=== PATIENT | female | born 1995 | race Caucasian/White ===

== ENCOUNTER 2017-01-10 10:03 | Emergency (ER) | payer OTHER ==
[~2017-01-10] VITALS: Ht 152.4 cm; Wt 43.2 kg
[2017-01-10 10:07] VITALS: TEMP 37.3; Ht 152.4 cm; Wt 43.2 kg
[2017-01-10] MEDS ORDERED: ALBUT/IPRATROP 3MG/0.5MG NEB 3 ML VIAL INH STA (10:25)
[2017-01-10] MEDS ORDERED: SODIUM CHLORIDE 0.9% 1000ML 1,000 ML IV STA (10:25)
[2017-01-10] MEDS ORDERED: ONDANSETRON INJ 2 MG/ML 2 ML VIAL IV STA (10:25)
[2017-01-10 11:04] LABS: BASO % 0.3 %; BASO ABS # 0.03 K/uL (0-0.2); COMPLETE YES; EOS % 1.6 %; HEMATOCRIT 43.5 % (37-47); IG% 0.2 %; LYMPH % 13.8 %; LYMPH ABS # 1.23 K/uL (1.2-3.4); MEAN CELL VOLUME 95.4 fL (80-100); MEAN CORPUSCULAR HEMOGLOBIN 33.3 pg (25-34); MEAN CORPUSCULAR HGB CONC 34.9 g/dl (32-36); MEAN PLATELET VOLUME 10.5 fL (7.4-10.4); MONO % 8.5 %; NEUT % 75.6 %; PLATELET COUNT 206 K/uL (130-400); RED BLOOD COUNT 4.56 M/uL (4.2-5.4); WHITE BLOOD COUNT 8.94 K/uL (4.8-10.8)
[2017-01-10 11:12] LABS: PREG INTERNAL NEGATIVE QC NEG CLEAR BACKGROUND; PREG INTERNAL POSITIVE QC POS CONTROL LINE
[2017-01-10 11:13] LABS: ALT/SGPT 23 U/L (12-78); AST/SGOT 17 U/L (15-37); BLOOD UREA NITROGEN 14 mg/dl (7-18); BUN/CREATININE RATIO 23.1 (10-20); CALCIUM 9.2 mg/dl (8.5-10.1); CARBON DIOXIDE 28 mmol/L (21-32); CHLORIDE 106 mmol/L (98-107); CREATININE 0.61 mg/dl (0.60-1.20); GLUCOSE 91 mg/dl (70-99); POTASSIUM 3.8 mmol/L (3.5-5.1); SODIUM 141 mmol/L (136-145)
[2017-01-10] MEDS ORDERED: OPTIRAY 320 IV PRN (11:15)
[2017-01-10 11:16] LABS: ALKALINE PHOSPHATASE 71 U/L (45-117)
--- NOTE | 2017-01-10 11:33 | DIAGNOSTIC IMAGING REPORT ---
CHEST 2 VIEWS ROUTINE CLINICAL HISTORY: Atypical chest pain COMPARISON STUDY: No previous studies for comparison. FINDINGS: The heart is enlarged. There are postsurgical changes of a midline sternotomy. There is a radiopaque disc like structure projected over the heart, possibly representing an atrial occluder. There is no failure. There is no focal pulmonary consolidation. There are no pleural effusions. There are multiple right upper quadrant calcifications. These could represent gallstones, or renal calculi.[ IMPRESSION: 1. Cardiomegaly. Postsurgical change. No acute findings. 2. Right upper quadrant abdominal calcifications Electronically signed by: Yoan Bergman M.D. 01/10/2017 11:32 AM Dictated Date/Time: 01/10/2017 11:30 AM
--- NOTE | 2017-01-10 12:00 | DIAGNOSTIC IMAGING REPORT ---
CT ANGIOGRAM OF THE CHEST CLINICAL HISTORY: Atypical chest pain, shortness of breath, palpitations, elevated d-dimer. COMPARISON STUDY: Chest x-ray dated 01/10/2017 TECHNIQUE: Following the IV administration of 72 mL of Optiray-320, CT angiogram of the thorax was performed from the thoracic inlet to the lung bases utilizing the pulmonary embolus protocol. Images are reviewed in the axial, sagittal, and coronal planes. IV contrast was administered without complication. MIP imaging was performed. CT DOSE: 211.55 mGy.cm FINDINGS: No pathologically enlarged axillary mediastinal or hilar lymph nodes were visualized. There was no evidence of thoracic aortic dilatation. There were no pulmonary artery filling defects to indicate acute pulmonary embolism. A violation lung bases is mildly limited due to respiratory motion artifact. No pleural effusions are visualized. There was no evidence of focal pulmonary consolidation. There are postsurgical changes of a midline sternotomy. There is a pectus deformity. The heart is enlarged. There is an atrial occlusion device present. Inflammatory changes are present within the paranasal sinuses. IMPRESSION: 1. No CT evidence of acute pulmonary embolism 2. No evidence of acute parenchymal consolidation Electronically signed by: Yoan Bergman M.D. 01/10/2017 11:58 AM Dictated Date/Time: 01/10/2017 11:54 AM
[2017-01-10] MEDS ORDERED: DOXY100C2 PO (13:52)
[2017-01-10] MEDS ORDERED: VNTHFA/IN INH (13:52)
[2017-01-10 14:06] VITALS: BP 133/81; PULSE 97; O2SAT 98
--- NOTE | 2017-01-10 16:13 | EMERGENCY ROOM VISIT NOTE ---
ED Visit Note First contact with patient: 10:11 Chief Complaint: Sinus pressure, chest pain, palpitations and wisdom teeth pain. History of Present Illness: Ms. Oliver is a 21-year-old white female who ambulates into the ED with multiple complaints. Historically patient has a history of congenital heart anomalies requiring surgery as an , asthma and pneumonia. Patient reports over the last 2 weeks she has been having upper respiratory tract symptoms including sinus congestion, nasal drainage, nonproductive cough, dyspnea on exertion and over the last 2 days fevers. She reports yesterday she started developing a pressure sensation over the anterior chest. Her discomfort started approximately 18 hours ago and has been constant. She rates her discomfort 5/10. Her pain is nonradiating. Her pain worsens with palpation of the anterior chest wall. She has not identified any alleviating factors related to her discomfort. She has not taken any medications for her discomfort prior to arrival at the hospital. Associated with her discomfort she reports she has intermittent palpitations; she reports this is normal and does not appear worse, and she reports she is having exertional dyspnea specifically when walking that resolves at rest and intermittently she has been hearing herself wheeze but not currently. She denies skin eruptions, skin color changes, headache, dizziness, hearing changes, sore throat, difficulty swallowing, recent surgery/inactivity/extended travel, estrogen/tobacco use, claudication, cramping, previous clots, abdominal pain, nausea/vomiting, back/flank pain. Additionally she reports she is having mandibular dental pain over her wisdom teeth. This is been ongoing for a while. She feels like it is increasing. She describes her discomfort as a deep achy sensation. Her discomfort worsens when chewing. She has not identified any alleviating factors related to her discomfort and has not taken any medications for this discomfort. Review of Systems: As noted above in history of present illness. All body systems were reviewed and found to be negative as noted above. Past Medical History: As previously noted, status post left lower leg amputation. Current Medications: Albuterol. Allergies to Medications: Penicillins, cephalosporins. Social History: Patient is currently employed; she feels safe in her home environment; she denies tobacco and alcohol use. Physical Examination: Vital Signs: Date Time Temp Pulse Resp B/P Pulse Ox O2 Delivery O2 Flow Rate FiO2 01/10/17 14:06 97 133/81 98 01/10/17 12:58 78 16 117/71 100 Room Air 01/10/17 11:00 84 120/69 100 01/10/17 10:51 98 Room Air 01/10/17 10:07 37.3 100 18 132/81 100 Room Air GENERAL: 21-year-old female in mild distress due to symptoms, nontoxic-appearing , afebrile and hemodynamically stable. NEUROLOGICAL: Awake, alert and oriented to person, place and time. Answering questions appropriately and following commands. Normal gait. Good hand eye coordination. No focal motor sensory deficits. SKIN: Warm, dry and pink. No soft tissue eruptions or trauma noted. HEENT: Atraumatic and normocephalic. Mild tenderness over the maxillary sinuses without erythema. No tenderness or erythema over the frontal sinuses. No transillumination abnormalities of the sinuses. External ears are nontender. Auditory canals are pink and patent. Tympanic membranes are normal appearing without signs of infection and a normal light reflex. PERRLA. Sclera white and conjunctiva pink without drainage. No drainage from naris with mild audible congestion. Oral cavity moist and pink. No signs of gingiva erythema or edema. No local abscess. Pointblank teeth do not appear impacted. And there is no signs of dental decay. Airway patent. Pharynx is nonerythematous or edematous. Speech normal. No lymphadenopathy. Trachea midline. No jugular venous distention. No carotid bruits. BACK: No tenderness over the bony spine. No CVA tenderness. THORAX: Lungs sounds are clear to auscultation but decreased bilaterally in the bases. Equal bilaterally with symmetrical chest wall. No wheezing, rales or rhonchi. No increased respiratory effort or rate. Mild tenderness over the anterior chest wall without bony deformity, bony crepitus or subcutaneous air. HEART: Tachycardic rate and rhythm. No gallops, rubs or murmurs are appreciated. PMI is not displaced. No lifts, heaves or thrills. ABDOMEN: Flat, soft and nontender. Positive bowel sounds in all quadrants. No guarding, rigidity or organomegaly. EXTREMITIES: Moves all extremities well on command and with purpose. All distal neurovascular statuses are intact and equal bilaterally. Left lower leg is prosthetic. No calf tenderness or cords in the right lower extremity. ED Course: Patient is assessed as noted above. Laboratory Testing: Test 4/20/17 10:31 01/10/17 10:36 Range/Units White Blood Count 8.94 4.8-10.8 K/uL Red Blood Count 4.56 4.2-5.4 M/uL Hemoglobin 15.2 12.0-16.0 g/dL Hematocrit 43.5 37-47 % Mean Corpuscular Volume 95.4 80-100 fL Mean Corpuscular Hemoglobin 33.3 25-34 pg Mean Corpuscular Hemoglobin Concent 34.9 32-36 g/dl Platelet Count 206 130-400 K/uL Mean Platelet Volume 10.5 7.4-10.4 fL Neutrophils (%) (Auto) 75.6 % Lymphocytes (%) (Auto) 13.8 % Monocytes (%) (Auto) 8.5 % Eosinophils (%) (Auto) 1.6 % Basophils (%) (Auto) 0.3 % Neutrophils # (Auto) 6.76 1.4-6.5 K/uL Lymphocytes # (Auto) 1.23 1.2-3.4 K/uL Monocytes # (Auto) 0.76 0.11-0.59 K/uL Eosinophils # (Auto) 0.14 0-0.5 K/uL Basophils # (Auto) 0.03 0-0.2 K/uL RDW Standard Deviation 44.1 36.4-46.3 fL RDW Coefficient of Variation 12.6 11.5-14.5 % Immature Granulocyte % (Auto) 0.2 % Immature Granulocyte # (Auto) 0.02 0.00-0.02 K/uL Sodium Level 141 136-145 mmol/L Potassium Level 3.8 3.5-5.1 mmol/L Chloride Level 106 98-107 mmol/L Carbon Dioxide Level 28 21-32 mmol/L Anion Gap 7.0 3-11 mmol/L Blood Urea Nitrogen 14 7-18 mg/dl Creatinine 0.61 0.60-1.20 mg/dl Est Creatinine Clear Calc Drug Dose 100.3 ml/min Estimated GFR () > 150.0 Estimated GFR (Non- 130.5 BUN/Creatinine Ratio 23.1 10-20 Random Glucose 91 70-99 mg/dl Calcium Level 9.2 8.5-10.1 mg/dl Total Bilirubin 1.7 0.2-1 mg/dl Direct Bilirubin 0.3 0-0.2 mg/dl Aspartate Amino Transf (AST/SGOT) 17 15-37 U/L Alanine Aminotransferase (ALT/SGPT) 23 12-78 U/L Alkaline Phosphatase 71 45-117 U/L Total Protein 8.0 6.4-8.2 gm/dl Albumin 3.9 3.4-5.0 gm/dl Lipase 136 73-393 U/L Human Chorionic Gonadotropin, Qual NEG NEG Bedside D-Dimer > 450 0-450 ng/mlFEU Bedside Troponin I 0.010 0-0.045 ng/ml EKG: Was read by myself and reviewed with Dr. Blackwood; shows normal sinus rhythm with a ventricular rate of 90 bpm. She does have septal changes in her T wave pattern of questionable etiology; they do not appear acute but could be cardiac surgeries. Chest x-rays: Were read by myself and the cook tortilla showing no acute infiltrates, effusions or pneumothorax. Heart silhouette is enlarged and there is postsurgical changes noted. Radiologist also notes right upper quadrant calcifications. Chest CTA: Was reviewed by myself and read by the radiologist showing no filling deficits consistent with acute pulmonary embolism and no evidence of acute parenchymal consolidation. Radiologist did note noted postsurgical changes of midsternal sternotomy. Additionally it is noted that the patient has inflammatory changes within the parents the paranasal sinuses Patient was hydrated with normal saline and was given 4 mg of Zofran IV for nausea and an albuterol/Atrovent nebulizer breathing treatment. Reevaluation of her lungs after her breathing treatment showed improved air movement in all crespo and she continued to have no acute respiratory distress. Patient's case was reviewed with Dr. Blackwood; we agreed on diagnostic approach , treatment, disposition and plan. Patient was educated about tonight's findings and instructed on her treatment plan; she verbalized understanding and agreement with this plan. Clinical Impression: Sinusitis. Pointblank teeth pain. Decision-Making: Initially my differential diagnosis I considered sinusitis, bronchitis, pneumonia, acute coronary syndrome, thoracic aneurysm, pneumothorax and other causes. Disposition: Patient discharged home in stable condition; prior to departure she was reassessed and subjectively reported she was feeling better; she reports she felt like she was breathing easier and reported a mild decrease in her dental pain and sinus discomfort. Plan: Patient was prescribed doxycycline 100 mg 2 times a day for 10 days. Additionally patient reports she has run out of her albuterol inhaler so she was prescribed an additional one with a spacer and instructed on achieves. Patient was encouraged to alternate ibuprofen and acetaminophen as needed for pain and/or fevers. Patient was encouraged to consider an [id number] decongestant her cough suppressant. Patient was encouraged to follow-up with her primary care providers for recheck in 3-5 days. Patient was encouraged return the ED for worsening/uncontrolled pain, uncontrolled fevers, uncontrolled wheezing/shortness of breath or any new/ concerning symptoms.
== END 2017-01-10 14:07 | disposition home or self-care (01) ==
LOC: C.EDB 10:06
DX: J32.9 Chronic sinusitis, unspecified (principal); K08.89 Other specified disorders of teeth and supporting structures; Z89.612 Acquired absence of left leg above knee; Z88.1 Allergy status to other antibiotic agents; Z88.8 Allergy status to other drugs, medicaments and biological substances

== ENCOUNTER 2017-01-14 03:45 | Emergency (ER) | payer OTHER ==
[~2017-01-14] VITALS: Ht 152.4 cm; Wt 41.8 kg
[~2017-01-14 03:45] MED LIST: DOXY100C2 PO; VNTHFA/IN INH
[2017-01-14 04:02] VITALS: TEMP 36.8; Ht 152.4 cm; Wt 41.8 kg
[2017-01-14] MEDS ORDERED: ONDANSETRON INJ 2 MG/ML 2 ML VIAL IV STA (04:02)
[2017-01-14] MEDS ORDERED: SODIUM CHLORIDE 0.9% 1000ML 1,000 ML IV STA (04:02)
--- NOTE | 2017-01-14 04:06 | EMERGENCY ROOM VISIT NOTE ---
History Report prepared by Yovana: Gurmeet Weinberg Under the Supervision of: Dr. Rebecca Locke D.O. First contact with patient: 03:46 Stated Complaint: nausea/vomitting History of Present Illness The patient is a 21 year old female who presents to the Emergency Room with complaints of persistent nausea that started yesterday. The patient also complains of vomiting and abdominal pain. She notes that the vomiting woke her up from sleep and started about an hour ago. The patient was recently in the ED a few days ago for sinusitis with asthma. She was given Doxycycline and Albuterol and has been taking these for a few days. She notes that she was feeling nauseated, but was able to deal with it until tonight when she started vomiting. The patient notes that she had an eating disorder that led to chronic yeast infections a few months ago. However, she has been doing better and eating more normally for the past few weeks. She was able to eat and drink normally yesterday having spaghetti and toast for lunch and dinner. She denies diarrhea or urinary symptoms. Her last normal menstrual period started a week ago. Source of History: patient Onset: yesterday Position: abdomen Timing: other (persistent) Associated Symptoms: + abdominal pain, + vomiting, No diarrhea, No urinary symptoms Review of Systems See HPI for pertinent positives & negatives. A total of 10 systems reviewed and were otherwise negative. Past Medical & Surgical Medical Problems: (1) Bronchitis (2) Gallbladder problem (3) Heart disease (4) Skin problem Surgical Problems: (1) Amputated left leg Family History FH: cancer FH: diabetes mellitus FH: gallbladder disease FH: heart disease FH: hypertension FH: lung disease Social History Smoking Status: Never Smoker Alcohol Use: none Marital Status: single Housing Status: lives alone Occupation Status: employed Current/Historical Medications Scheduled Albuterol Hfa (Ventolin Hfa), 2 PUFFS INH QID Doxycycline Hyclate (Vibramycin), 100 MG PO BID Allergies Coded Allergies: Cephalexin (Verified Allergy, Severe, HIVES, 01/14/17) Penicillins (Verified Allergy, Severe, HIVES, 01/14/17) Amoxicillin (Verified Allergy, Unknown, hives, 01/14/17) Physical Exam Vital Signs Date Time Temp Pulse Resp B/P Pulse Ox O2 Delivery O2 Flow Rate FiO2 01/14/17 04:46 94 18 93/72 99 Room Air 01/14/17 04:02 36.8 86 18 139/85 99 Room Air Physical Exam HEENT: Head - normocephalic and atraumatic Pupils are equal, round, and reactive to light. Extraocular eye muscles are intact, and sclera are anicteric. Nose - moist nasal mucosa without discharge. Mouth - moist buccal mucosa. Oropharynx is nonerythematous and there is no tonsillar exudate or edema noted. Neck: Supple; no JVD, nuchal rigidity, cervical lymphadenopathy. Heart: Regular rate and rhythm. There is a normal S1 and S2 with no murmurs, clicks, or gallops appreciated. Lungs: Clear to auscultation bilaterally with no wheezes, rales, or rhonchi. Abdomen: Soft, completely nontender, nondistended, with good bowel sounds. There are no palpable pulsatile masses or hepatosplenomegaly. There is no guarding, rigidity, or rebound noted. Extremities: No evidence of cyanosis, clubbing, or edema. Left leg BKA. Skin: color is pantoja. warm and dry with good turgor and no rashes. Medical Decision & Procedures Laboratory Results 01/14/17 04:00 Red Blood Count 4.66, Mean Corpuscular Volume 96.1, Mean Corpuscular Hemoglobin 33.0, Mean Corpuscular Hemoglobin Concent 34.4, Mean Platelet Volume 10.2, Neutrophils (%) (Auto) 84.1, Lymphocytes (%) (Auto) 7.3, Monocytes (%) (Auto) 6.9, Eosinophils (%) (Auto) 1.3, Basophils (%) (Auto) 0.1, Neutrophils # (Auto) 12.17, Lymphocytes # (Auto) 1.06, Monocytes # (Auto) 1.00, Eosinophils # (Auto) 0.19, Basophils # (Auto) 0.02 01/14/17 04:00 Test 01/14/17 04:00 White Blood Count 14.48 K/uL (4.8-10.8) Red Blood Count 4.66 M/uL (4.2-5.4) Hemoglobin 15.4 g/dL (12.0-16.0) Hematocrit 44.8 % (37-47) Mean Corpuscular Volume 96.1 fL (80-100) Mean Corpuscular Hemoglobin 33.0 pg (25-34) Mean Corpuscular Hemoglobin Concent 34.4 g/dl (32-36) Platelet Count 263 K/uL (130-400) Mean Platelet Volume 10.2 fL (7.4-10.4) Neutrophils (%) (Auto) 84.1 % Lymphocytes (%) (Auto) 7.3 % Monocytes (%) (Auto) 6.9 % Eosinophils (%) (Auto) 1.3 % Basophils (%) (Auto) 0.1 % Neutrophils # (Auto) 12.17 K/uL (1.4-6.5) Lymphocytes # (Auto) 1.06 K/uL (1.2-3.4) Monocytes # (Auto) 1.00 K/uL (0.11-0.59) Eosinophils # (Auto) 0.19 K/uL (0-0.5) Basophils # (Auto) 0.02 K/uL (0-0.2) RDW Standard Deviation 44.1 fL (36.4-46.3) RDW Coefficient of Variation 12.5 % (11.5-14.5) Immature Granulocyte % (Auto) 0.3 % Immature Granulocyte # (Auto) 0.04 K/uL (0.00-0.02) Anion Gap 7.0 mmol/L (3-11) Est Creatinine Clear Calc Drug Dose 79.0 ml/min Estimated GFR () 133.0 Estimated GFR (Non- 114.7 BUN/Creatinine Ratio 25.2 (10-20) Calcium Level 8.8 mg/dl (8.5-10.1) Total Bilirubin 1.5 mg/dl (0.2-1) Aspartate Amino Transf (AST/SGOT) 19 U/L (15-37) Alanine Aminotransferase (ALT/SGPT) 29 U/L (12-78) Alkaline Phosphatase 74 U/L (45-117) Total Protein 8.2 gm/dl (6.4-8.2) Albumin 4.2 gm/dl (3.4-5.0) Globulin 4.0 gm/dl (2.5-4.0) Albumin/Globulin Ratio 1.1 (0.9-2) Lipase 124 U/L (73-393) Laboratory results per my review. Medications Administered Medications (Trade) Dose Ordered Sig/Tania Route Start Time Stop Time Status Last Admin Dose Admin Ondansetron HCl 4 mg 4 mg NOW STAT IV 01/14/17 04:02 01/14/17 04:05 DC 01/14/17 04:08 4 MG Sodium Chloride 1,000 ml @ 999 mls/hr Q1H1M STAT IV 01/14/17 04:02 01/14/17 05:02 DC 01/14/17 04:08 999 MLS/HR Sodium Chloride (Nss 500ml) 500 ml @ 999 mls/hr Q31M STAT IV 01/14/17 04:40 01/14/17 05:10 DC 01/14/17 04:46 999 MLS/HR Lorazepam (Ativan Inj) 0.5 mg NOW STAT IV 01/14/17 05:10 01/14/17 05:11 DC 01/14/17 05:14 0.5 MG Procedure NSS IV Zofran Inj IV NSS IV Ativan Inj IV ED Course 0352: Past medical records reviewed. The patient was evaluated in room B2. A complete history and physical exam was performed. An IV lock was initiated and labs were drawn as above. 0402: Ordered NSS 1000 ml @ 999 mls/hr IV, Zofran Inj 4 mg IV/ 0434: At this time, I reevaluated the patient and she was feeling worse than before. She states that she is having a panic attack, but she does not want any medication to treat it. She notes her nausea and vomiting are improving after the medications. She thinks coming to the ED is what started her panic attack. 0440: Ordered NSS 500 ml @ 999 mls/hr IV. 0506: At his time, the patient asked for medication for anxiety. 0510: Ordered Ativan Inj 0.5 mg IV. 0524: At this time, I reevaluated the patient and she was asleep. 0550: At this time, the patient was easily woken up. She was going to try Gatorade and eat crackers. 0610: Upon reevaluation, the patient was resting comfortably and able to keep the fluids and food down. I discussed findings and results with her. She verbalized agreement of the treatment plan. The patient was discharged home. Medical Decision The patient is a 21 year old female who presents to the ED with nausea. Differential diagnosis includes gastritis, viral illness, dehydration, food borne illness, or bowel obstruction. Labs reviewed by me: WBCs 14.4, stable H&H, 84% neutrophils, potassium low at 3.2, BUN 19, creatinine 0.75, glucose 124, lipase normal, LFTs normal except for total bilirubin of 1.5. This is a 21-year-old female patient with a history of anxiety who had a sudden onset of nausea and vomiting as morning. She denies any recent sick contacts, although she works at a daycare. She ate food that was repaired at home for lunch and dinner. This is unlikely the cause of her vomiting. The patient has no significant signs of infection. She had significant relief after receiving IV fluids and antiemetics. She is resting comfortably at this time was able to drink Gatorade and crackers. I suggested that the patient follow up with her PCP if the anxiety continues. Otherwise, she should take a bland diet, plenty of clear liquids, and foods high in potassium. If the vomiting persists or symptoms worsen, she should return to the ER. Impression Primary Impression: Vomiting Additional Impressions: Anxiety Hypokalemia Scribe Attestation The scribe's documentation has been prepared under my direction and personally reviewed by me in its entirety. I confirm that the note above accurately reflects all work, treatment, procedures, and medical decision making performed by me. Departure Information Dispostion Home / Self-Care Referrals Joe Major M.D. (PCP) Forms HOME CARE DOCUMENTATION FORM, IMPORTANT VISIT INFORMATION Patient Instructions Anxiety Body Response, Anxiety Disorder, My [facility], Vomiting Ch Additional Instructions Rest. Take a bland diet and plenty of clear liquids Take foods high in potassium. Follow up with PCP if anxiety continues to be a problem. Problem Qualifiers
[2017-01-14 04:14] LABS: BASO % 0.1 %; BASO ABS # 0.02 K/uL (0-0.2); COMPLETE YES; EOS % 1.3 %; HEMATOCRIT 44.8 % (37-47); IG% 0.3 %; LYMPH % 7.3 %; LYMPH ABS # 1.06 K/uL (1.2-3.4); MEAN CELL VOLUME 96.1 fL (80-100); MEAN CORPUSCULAR HGB CONC 34.4 g/dl (32-36); MEAN PLATELET VOLUME 10.2 fL (7.4-10.4); MONO % 6.9 %; NEUT % 84.1 %; PLATELET COUNT 263 K/uL (130-400); RED BLOOD COUNT 4.66 M/uL (4.2-5.4); WHITE BLOOD COUNT 14.48 K/uL (4.8-10.8)
[2017-01-14 04:31] LABS: BUN/CREATININE RATIO 25.2 (10-20); CALCIUM 8.8 mg/dl (8.5-10.1); CREATININE 0.75 mg/dl (0.60-1.20); POTASSIUM 3.2 mmol/L (3.5-5.1)
[2017-01-14 04:34] LABS: ALB/GLOB RATIO 1.1 (0.9-2)
[2017-01-14] MEDS ORDERED: SODIUM CHLORIDE 0.9% 500ML 500 ML IV STA (04:40)
[2017-01-14] MEDS ORDERED: LORAZEPAM 2 MG/ML 1 ML VIAL IV STA (05:10)
[2017-01-14 06:30] VITALS: BP 109/55; PULSE 87; O2SAT 98
== END 2017-01-14 06:30 | disposition home or self-care (01) ==
LOC: EDBD 03:45 → C.EDB 03:46
DX: R11.2 Nausea with vomiting, unspecified (principal); F41.9 Anxiety disorder, unspecified; E87.6 Hypokalemia; R10.9 Unspecified abdominal pain; Z86.79 Personal history of other diseases of the circulatory system; Z87.19 Personal history of other diseases of the digestive system; Z82.49 Family history of ischemic heart disease and other diseases of the circulatory system; Z83.3 Family history of diabetes mellitus; Z83.6 Family history of other diseases of the respiratory system; Z83.79 Family history of other diseases of the digestive system

== ENCOUNTER 2017-01-20 04:12 | Emergency (ER) | payer OTHER ==
[~2017-01-20] VITALS: Ht 149.9 cm; Wt 44.0 kg
[~2017-01-20 04:12] MED LIST changes: -VNTHFA/IN INH
[2017-01-20 04:25] VITALS: TEMP 37.8; O2SAT 97; Ht 149.9 cm; Wt 44.0 kg
[2017-01-20 04:49] LABS: BASO % 0.5 %; BASO ABS # 0.03 K/uL (0-0.2); COMPLETE YES; EOS % 3.8 %; HEMATOCRIT 42.5 % (37-47); IG% 0.5 %; LYMPH % 30.4 %; LYMPH ABS # 1.98 K/uL (1.2-3.4); MEAN CELL VOLUME 93.8 fL (80-100); MEAN CORPUSCULAR HEMOGLOBIN 32.2 pg (25-34); MEAN CORPUSCULAR HGB CONC 34.4 g/dl (32-36); MONO % 7.2 %; NEUT % 57.6 %; PLATELET COUNT 239 K/uL (130-400); RED BLOOD COUNT 4.53 M/uL (4.2-5.4); WHITE BLOOD COUNT 6.51 K/uL (4.8-10.8)
[2017-01-20] MEDS ORDERED: CLIN300C2 PO (04:53)
[2017-01-20 05:12] LABS: ALT/SGPT 36 U/L (12-78); AST/SGOT 32 U/L (15-37); BLOOD UREA NITROGEN 14 mg/dl (7-18); BUN/CREATININE RATIO 22.4 (10-20); CALCIUM 8.8 mg/dl (8.5-10.1); CARBON DIOXIDE 29 mmol/L (21-32); CHLORIDE 103 mmol/L (98-107); CREATININE 0.62 mg/dl (0.60-1.20); GLUCOSE 85 mg/dl (70-99); POTASSIUM 3.4 mmol/L (3.5-5.1); SODIUM 140 mmol/L (136-145)
[2017-01-20 05:14] LABS: ALB/GLOB RATIO 1.1 (0.9-2); ALKALINE PHOSPHATASE 61 U/L (45-117)
[2017-01-20] MEDS ORDERED: OPTIRAY 320 IV PRN (05:15)
--- NOTE | 2017-01-20 07:18 | EMERGENCY ROOM VISIT NOTE ---
History First contact with patient: 04:15 Chief Complaint: CHEST PAIN Stated Complaint: CHEST PAIN Nursing Triage Summary: Patient reports "aching chest pain" tonight that was making it difficult to sleep. Reports that she has noticed aching to chest intermittently for past 2 days. Also was seen at [facility] on 01/19 for tooth infection and was put on abx. Patient concerned about heart infection due to hx of congenital heart issues. Patient sees developmental behavioral physician routinely & has not had any issues since 2005 when she had a cardiac cath with VSD done at that time. History of Present Illness The patient is a 21 year old female who presents to the Emergency Room with complaints of dull aching chest pain over the past several hours. The patient states that she has had intermittent chest discomfort for the past 2 days. The patient was seen in [facility] several hours ago and diagnosed with a tooth infection. She was placed on clindamycin for a dental infection. The patient became concerned as she has a past history of pulmonary atresia, and felt that she may have a heart problem. The patient has not had fever or chills. If she does not have shortness of breath or dyspnea on exertion. She is without other significant symptoms. She rates her discomfort a 5/10. Review of Systems More than 10 systems were reviewed and otherwise negative with the exception of history of present illness. Past Medical/Surgical History Medical Problems: (1) Bronchitis (2) Gallbladder problem (3) Heart disease (4) Skin problem Surgical Problems: (1) Amputated left leg Family History FH: cancer FH: diabetes mellitus FH: gallbladder disease FH: heart disease FH: hypertension FH: lung disease Social History Smoking Status: Never Smoker Alcohol Use: none Marital Status: single Housing Status: lives alone Occupation Status: employed Current/Historical Medications Scheduled Clindamycin Hcl (Cleocin), 300 MG PO QID Allergies Coded Allergies: Cephalexin (Verified Allergy, Severe, HIVES, 01/14/17) Penicillins (Verified Allergy, Severe, HIVES, 01/14/17) Amoxicillin (Verified Allergy, Unknown, hives, 01/14/17) Physical Exam Vital Signs Date Time Temp Pulse Resp B/P Pulse Ox O2 Delivery O2 Flow Rate FiO2 01/20/17 06:49 72 20 111/61 99 Room Air 01/20/17 06:41 69 16 95/56 97 Room Air 01/20/17 05:12 68 13 98 01/20/17 04:57 71 20 96 01/20/17 04:42 71 20 97 01/20/17 04:40 77 01/20/17 04:25 97 Room Air 01/20/17 04:25 37.8 73 20 122/75 97 Room Air 01/20/17 04:25 97 Room Air 01/20/17 04:23 122/75 Physical Exam VITALS: Vitals are noted on the nurse's note and reviewed by myself. Vital signs stable. GENERAL: Well-developed, well-nourished, anxious white female, who is cooperative with the examination. HEAD: Normocephalic atraumatic. EARS: External ear normal. External auditory canals clear, tympanic membranes pearly pantoja without erythema or effusion bilaterally. EYES: Pupils equal round and reactive to light and accommodation. Conjunctivae without injection, sclerae without icterus. Extraocular movements intact. NOSE: Patent, turbinates without inflammation or discharge. MOUTH: Mucous membranes moist. Tonsils are not enlarged. Pharynx without erythema, blood, or exudate. Uvula midline. Airway patent. NECK: Supple without nuchal rigidity. No lymphadenopathy. No thyromegaly. Cervical spine is nontender. HEART: Regular rate and rhythm without murmurs gallops or rubs. LUNGS: Clear to auscultation bilaterally without wheezes, rales or rhonchi. No retractions or accessory muscle use. ABDOMEN: Positive normal bowel sounds x 4. Soft, nontender, without masses or organomegaly. No guarding or rebound tenderness. MUSCULOSKELETAL: No muscle atrophy, erythema, or edema noted. Full range of motion without joint tenderness in all extremities. Medical Decision & Procedures ER Provider Diagnostic Interpretation: Preliminary Findings Only See Final Report For Complete Findings CTA CHEST: Comparison is made to CT chest 01/10/17. There has been previous midline sternotomy. There is a pectus deformity with impingement on the right heart. There is stable cardiomegaly. Thoracic aorta is normal in caliber. There is no adenopathy. There is no evidence of acute pulmonary embolism. Main pulmonary artery is normal in caliber. The lungs are clear. There is no effusion or pneumothorax. Visualized upper abdomen is unremarkable. There are no acute osseous findings. Laboratory Results 01/20/17 04:07 Red Blood Count 4.53, Mean Corpuscular Volume 93.8, Mean Corpuscular Hemoglobin 32.2, Mean Corpuscular Hemoglobin Concent 34.4, Mean Platelet Volume 10.0, Neutrophils (%) (Auto) 57.6, Lymphocytes (%) (Auto) 30.4, Monocytes (%) (Auto) 7.2, Eosinophils (%) (Auto) 3.8, Basophils (%) (Auto) 0.5, Neutrophils # (Auto) 3.75, Lymphocytes # (Auto) 1.98, Monocytes # (Auto) 0.47, Eosinophils # (Auto) 0.25, Basophils # (Auto) 0.03 01/20/17 04:07 Test 01/20/17 04:07 01/20/17 04:42 White Blood Count 6.51 K/uL (4.8-10.8) Red Blood Count 4.53 M/uL (4.2-5.4) Hemoglobin 14.6 g/dL (12.0-16.0) Hematocrit 42.5 % (37-47) Mean Corpuscular Volume 93.8 fL (80-100) Mean Corpuscular Hemoglobin 32.2 pg (25-34) Mean Corpuscular Hemoglobin Concent 34.4 g/dl (32-36) Platelet Count 239 K/uL (130-400) Mean Platelet Volume 10.0 fL (7.4-10.4) Neutrophils (%) (Auto) 57.6 % Lymphocytes (%) (Auto) 30.4 % Monocytes (%) (Auto) 7.2 % Eosinophils (%) (Auto) 3.8 % Basophils (%) (Auto) 0.5 % Neutrophils # (Auto) 3.75 K/uL (1.4-6.5) Lymphocytes # (Auto) 1.98 K/uL (1.2-3.4) Monocytes # (Auto) 0.47 K/uL (0.11-0.59) Eosinophils # (Auto) 0.25 K/uL (0-0.5) Basophils # (Auto) 0.03 K/uL (0-0.2) RDW Standard Deviation 42.5 fL (36.4-46.3) RDW Coefficient of Variation 12.5 % (11.5-14.5) Immature Granulocyte % (Auto) 0.5 % Immature Granulocyte # (Auto) 0.03 K/uL (0.00-0.02) Anion Gap 8.0 mmol/L (3-11) Estimated GFR () > 150.0 Estimated GFR (Non- 129.8 BUN/Creatinine Ratio 22.4 (10-20) Calcium Level 8.8 mg/dl (8.5-10.1) Total Bilirubin 1.9 mg/dl (0.2-1) Aspartate Amino Transf (AST/SGOT) 32 U/L (15-37) Alanine Aminotransferase (ALT/SGPT) 36 U/L (12-78) Alkaline Phosphatase 61 U/L (45-117) Total Protein 7.7 gm/dl (6.4-8.2) Albumin 4.0 gm/dl (3.4-5.0) Globulin 3.7 gm/dl (2.5-4.0) Albumin/Globulin Ratio 1.1 (0.9-2) Bedside D-Dimer > 450 ng/mlFEU (0-450) Bedside Troponin I 0.020 ng/ml (0-0.045) ED Course Physical exam and history were performed. Nursing notes and EMR were reviewed. Patient appears to have vague dull chest achiness for the past one to 2 days. The patient appears mildly anxious on examination. IV access was established and labs were obtained. EKG was performed and was normal sinus rhythm at 72 beats per minute without ischemia or ectopy. The patient was placed on the phototypesetting equipment monitor. The patient's blood work is as above and was reviewed. She does not have a significant elevated white blood cell count, gross anemia, bandemia, or significant electrolyte imbalance. Troponin 1 is negative. Her d-dimer was elevated and CT angiogram of the chest does not show an acute process. The patient remained in stable condition throughout the ER stay. On subsequent reevaluation she was able to rest comfortably and felt well. I had a lengthy discussion with patient regarding her symptoms, which I feel there is a strong anxiety component to. The patient should follow with her developmental behavioral physician for further management. She was otherwise invited back to the ER with any new, worsening, or concerning symptoms. The chart was completed utilizing [employer] Voice Recognition Software. Grammatical errors, random word insertions, pronoun errors, and incomplete sentences are an occasional consequence of this system due to software limitations, ambient noise, and hardware issues. Any formal questions or concerns about the content, text, or information contained within the body of this dictation should be directly addressed to the provider for clarification. . Medical Decision Differential diagnosis includes, but is not limited to: Myocardial infarction, dysrhythmia, pericarditis, pneumothorax, aortic aneurysm/dissection, DVT/PE, anxiety, GERD, PUD, electrolyte imbalance, thyroid disorder, pneumonia, bronchitis, pancreatitis, and others Impression Primary Impression: Non-cardiac chest pain Departure Information Dispostion Home / Self-Care Condition GOOD Referrals Joe Major M.D. (PCP) Forms HOME CARE DOCUMENTATION FORM, IMPORTANT VISIT INFORMATION Patient Instructions My [facility] Additional Instructions You were seen and evaluated today on an emergency basis only. This is not a substitute for, or an effort to provide, complete comprehensive medical care. It is not possible to recognize and treat all injuries or illnesses in a single emergency department visit. For this reason it is recommended that you followup with your developmental behavioral physician and primary care physician for ongoing care and evaluation. You are welcome to return to the emergency department anytime with new, worsening, or concerning symptoms.
[2017-01-20 07:44] VITALS: BP 124/59; PULSE 80; O2SAT 97
--- NOTE | 2017-01-20 08:38 | DIAGNOSTIC IMAGING REPORT ---
CHEST ONE VIEW PORTABLE CLINICAL HISTORY: Left sided chest pain. COMPARISON STUDY: Chest radiograph and chest CT January 10, 2017. FINDINGS: There is no pneumothorax or pleural effusion. There is no evidence of pulmonary edema. Pediatric median sternotomy wires are noted. There is a suspected ASD occluder. Mild to moderate cardiomegaly is unchanged. IMPRESSION: No acute cardiopulmonary findings. Mild to moderate stable cardiomegaly. Electronically signed by: Demond Constantino M.D. 01/20/2017 8:37 AM Dictated Date/Time: 01/20/2017 8:35 AM
--- NOTE | 2017-01-20 08:46 | DIAGNOSTIC IMAGING REPORT ---
CT ANGIOGRAPHY OF THE CHEST, PULMONARY EMBOLUS PROTOCOL CLINICAL HISTORY: Left-sided chest pain. Elevated d-dimer. COMPARISON STUDY: Chest CT January 10, 2017. TECHNIQUE: Following IV administration of 76 mL of Optiray-320, helical axial images of the chest were obtained utilizing the pulmonary embolus protocol. Maximal intensity projections and sagittal and coronal reformats were viewed on an independent 3D workstation. IV contrast was administered without complication. CT DOSE: 157.65 mGy.cm FINDINGS: No pulmonary emboli are identified although the segmental and subsegmental vessels are suboptimally assessed due to respiratory motion. Pectus excavatum deformity is noted. There is a suspected ASD occluder. Mild to moderate cardiomegaly is unchanged. There is no pericardial effusion or thoracic lymphadenopathy. There is no evidence of thoracic aortic dissection. Central airways are patent. Lungs are suboptimally assessed due to respiratory motion but no consolidation is identified. There is no pneumothorax or pleural effusion. Upper abdomen is unremarkable. IMPRESSION: 1. No pulmonary emboli identified although segmental and subsegmental pulmonary arteries are suboptimally assessed due to respiratory motion. 2. Pectus excavatum deformity. Post surgical findings within the chest, as described above. 3. No acute intrathoracic findings. Lung suboptimally assessed due to respiratory motion. Electronically signed by: Demond Constantino M.D. 01/20/2017 8:45 AM Dictated Date/Time: 01/20/2017 8:40 AM
== END 2017-01-20 08:16 | disposition home or self-care (01) ==
LOC: EDBD 04:12 → C.EDB 04:13
DX: R07.89 Other chest pain (principal); K04.7 Periapical abscess without sinus; Z89.612 Acquired absence of left leg above knee; Z83.3 Family history of diabetes mellitus; Z82.49 Family history of ischemic heart disease and other diseases of the circulatory system

== ENCOUNTER 2017-03-03 05:03 | Emergency (ER) | payer OTHER ==
[~2017-03-03] VITALS: Ht 149.9 cm; Wt 43.1 kg
[~2017-03-03 05:03] MED LIST changes: +CLIN300C2 PO; -DOXY100C2 PO
[2017-03-03 05:05] VITALS: TEMP 36.6; Ht 149.9 cm; Wt 43.1 kg
[2017-03-03] MEDS ORDERED: ALBUT/IPRATROP 3MG/0.5MG NEB 3 ML VIAL INH STA (05:10)
[2017-03-03] MEDS ORDERED: DEXAMETHASONE SOD INJ 10 MG/ML VIAL PO ONE (05:15)
[2017-03-03 05:24] VITALS: O2SAT 98
[2017-03-03] MEDS ORDERED: VNTHFA/IN INH (05:33)
--- NOTE | 2017-03-03 06:02 | EMERGENCY ROOM VISIT NOTE ---
History First contact with patient: 05:05 Chief Complaint: RESPIRATORY PROBLEMS Stated Complaint: ASTHMA ATTACK Nursing Triage Summary: Pt has had two asthma attacks over last two days. Has used rescue inhaler both times with success. Last attack was at 0230. Pt was skyping with friend and started losing voice and shortness of breath. Pt wanted to be evaluated after second asthma attack. History of Present Illness The patient is a 21 year old female who presents to the Emergency Room with complaints of cough and wheeze for the past few hours who has asthma. Patient feels as if she is flaring. Patient denies chest pain, fevers, productive cough , abdominal pain, sore throat, lightheadedness dizziness. She is tolerate by mouth fluids and food. Review of Systems See HPI for pertinent positives & negatives. A total of 10 systems reviewed and were otherwise negative. Past Medical/Surgical History Medical Problems: (1) Bronchitis (2) Gallbladder problem (3) Heart disease (4) Skin problem Surgical Problems: (1) Amputated left leg Family History FH: cancer FH: diabetes mellitus FH: gallbladder disease FH: heart disease FH: hypertension FH: lung disease Social History Smoking Status: Never Smoker Alcohol Use: none Drug Use: none Marital Status: single Housing Status: lives alone Occupation Status: employed Current/Historical Medications Scheduled PRN Albuterol Hfa (Ventolin Hfa), 2-4 PUFFS INH DIRECTED PRN for SOB/Wheezing Allergies Coded Allergies: Cephalexin (Verified Allergy, Severe, HIVES, 03/03/17) Penicillins (Verified Allergy, Severe, HIVES, 03/03/17) Amoxicillin (Verified Allergy, Unknown, hives, 03/03/17) Physical Exam Vital Signs Date Time Temp Pulse Resp B/P (MAP) Pulse Ox O2 Delivery O2 Flow Rate FiO2 03/03/17 05:24 98 Room Air 03/03/17 05:23 98 Room Air 03/03/17 05:05 99 Room Air 03/03/17 05:05 36.6 75 18 120/78 99 Room Air Physical Exam VITALS: Vitals are noted on the nurse's note and reviewed by myself. Vital signs stable. GENERAL: Pleasant female able to speak in full sentences with audible wheeze, in no acute distress, nondiaphoretic, well-developed well-nourished. SKIN: The skin was without rashes, erythema, edema, or bruising. There is no tenting of the skin. Capillary reflex less than 2 seconds. HEAD: Normocephalic atraumatic. EARS: External auditory canals clear, tympanic membranes pearly pantoja without erythema or effusion bilaterally. EYES: Pupils equal round and reactive to light and accommodation. Conjunctivae without injection, sclerae without icterus. Extraocular movements intact. NOSE: Patent, turbinates without inflammation or discharge. No sinus tenderness. MOUTH: Mucous membranes moist. Pharynx without erythema or exudate. Uvula midline. Airway patent. Tongue does not deviate. NECK: Supple without nuchal rigidity. No lymphadenopathy. No thyromegaly. Cervical spine is nontender. No JVD. HEART: Regular rate and rhythm without murmurs gallops or rubs. LUNGS: Mild diffuse end expiratory wheezes, without rales or rhonchi. No dullness to percussion. No retractions or accessory muscle use. ABDOMEN: Positive bowel sounds x 4. Normal tympanic percussion. Soft, nontender, without masses or organomegaly. Harrington sign negative. No guarding or rebound tenderness. MUSCULOSKELETAL: No muscle atrophy, erythema, or edema noted. NEURO: Patient was alert and oriented to person place and time. Normal sensation to light and sharp touch. No focal neurological deficits. Medical Decision & Procedures Medications Administered Medications (Trade) Dose Ordered Sig/Tania Route Start Time Stop Time Status Last Admin Dose Admin Albuterol/ Ipratropium (Duoneb) 3 ml NOW STAT INH 03/03/17 05:10 03/03/17 05:12 DC 03/03/17 05:21 3 ML Dexamethasone Sodium Phosphate (Decadron Inj) 10 mg NOW ONCE PO 03/03/17 05:15 03/03/17 05:16 DC 03/03/17 05:21 10 MG ED Course Prior records/ancillary studies reviewed. Triage Nursing notes reviewed. The patient's history was concerning for respiratory difficulties. Differential diagnosis: Etiologies such as infections, reactive airway disease, pneumonia, pneumothorax , COPD, CHF, cardiac ischemia, pulmonary embolism, musculoskeletal, gastrointestinal, as well as others were entertained. Physical examination: As above. ER treatment provided: Nebulizer, Decadron On reassessment the patient felt better. Diagnostic interpretation by me: Deferred. This appears to be consistent with an exacerbation. Patient felt much better after being medicated as above. Lungs are reassessed and improved. She is speaking in full sentences. She is advised follow-up family care in a few days or here in the ER sooner for difficulty breathing, fevers, chest pain, worsening signs or symptoms or as needed. Patient was not hypoxic. She was well-appearing. By the evaluation outlined above emergent etiologies such as CHF, cardiac ischemia, pulmonary embolism, pneumonia, pneumothorax, musculoskeletal, serious bacterial infections, as well as others were deemed relatively unlikely. The pt informed about the findings as listed above. All questions were answered and pleased with the treatment. Return instructions were outlined and the patient was discharged in stable condition. Outpatient prescription management: prednisone Referral: The patient was referred back to their primary care physician for follow-up in 2 to 3 days for a recheck of the current condition. case reviewed with my Attending Medical Decision As above Impression Primary Impression: Asthma exacerbation Departure Information Dispostion Home / Self-Care Condition GOOD Referrals Joe Major M.D. (PCP) Patient Instructions My [facility] Additional Instructions Albuterol Inhaler: Take 2 puffs four times daily for five days, then as needed. Prednisone 50mg: Once daily until the prescription is finished. It is best to take this earlier in the day as some patients note occasional difficulty falling asleep when taken in the late evening. Acetaminophen(Tylenol) may be used for fever or pain. Use 1000mg every six hours as needed. Avoid using more than 3000mg in a 24 hour period. (AND/OR) Ibuprofen(Motrin, Advil) may be used for fever or pain. Use 600mg every six hours as needed. Take with food. Avoid using more than 2400mg in a 24 hour period. Do not use 2400mg per day for more than three consecutive days without physician direction. Prolonged inappropriate use can lead to stomach upset or ulcers. Rest and drink plenty of fluids. Avoid smoke/smoking, fumes, dust, or any triggers in the past that may have affected your breathing. Continue current medications. Return to the ER for chest pain, difficulty breathing, fevers, vomiting, worsening of your condition, or as needed. Follow up with your primary physician this week for a recheck of your current condition.
[2017-03-03] MEDS ORDERED: PRED50TA PO (06:04)
[2017-03-03 06:13] VITALS: BP 122/81; PULSE 93; O2SAT 98
== END 2017-03-03 06:13 | disposition home or self-care (01) ==
LOC: EDBD 05:03 → C.EDA 05:05
DX: J45.901 Unspecified asthma with (acute) exacerbation (principal); I51.9 Heart disease, unspecified; Z80.9 Family history of malignant neoplasm, unspecified; Z83.3 Family history of diabetes mellitus; Z83.79 Family history of other diseases of the digestive system; Z82.49 Family history of ischemic heart disease and other diseases of the circulatory system; Z83.6 Family history of other diseases of the respiratory system